=== PATIENT | female | born 1990 | race Caucasian/White ===

== ENCOUNTER 2017-03-08 14:42 | Emergency (ER) | payer SELFPAY ==
[2017-03-08 15:09] VITALS: BP 113/75
[2017-03-08] MEDS ORDERED: ALBUTEROL SULFATE 0.083% NEB 2.5 MG/3 ML AMPUL NEB ONE (15:39)
[2017-03-08] MEDS ORDERED: PREDNISONE 20 MG TABLET PO ONE (15:39)
--- NOTE | 2017-03-08 15:44 | ER Document Report ---
ED Respiratory Problem - General Chief Complaint: Cold Symptoms Stated Complaint: COLD SYMPTOMS Time Seen by Provider: 03/08/17 15:36 Notes: 27 yo female c/o cough, chest tightness, cold s/s x 3 days. symptoms started after doing yard work and burning poison [place] back yard. + smoker, no hx/o asthma TRAVEL OUTSIDE OF THE [place] IN LAST 30 DAYS: No - HPI Patient complains to provider of: Cough Initiating Event: Exposure to smoke Quality of pain: Achy Short of Breath: Mild Cough: Nonproductive Associated symptoms: Chills, Congestion, Cough, Headache, Hurts to breathe, Sore Throat Similar symptoms previously: No Recently seen / treated by doctor: No - Related Data Allergies/Adverse Reactions: No Known Allergies Allergy (Verified 03/08/17 16:21) Home Medications: Current Home Medications Trazodone HCl 200 mg PO QHS 03/08/17 [History] Past Medical History - General Information source: Patient - Social History Smoking Status: Current Every Day Smoker Frequency of alcohol use: Occasional Drug Abuse: None Lives with: Family Family History: Reviewed & Not Pertinent Patient has suicidal ideation: No Patient has homicidal ideation: No - Medical History Medical History: Negative Renal/ Medical History: Denies: Hx Peritoneal Dialysis Review of Systems - Review of Systems Constitutional: No symptoms reported EENT: No symptoms reported, See HPI Cardiovascular: No symptoms reported Respiratory: See HPI Gastrointestinal: No symptoms reported Genitourinary: No symptoms reported Female Genitourinary: No symptoms reported Musculoskeletal: No symptoms reported Skin: No symptoms reported Hematologic/Lymphatic: No symptoms reported Neurological/Psychological: No symptoms reported Physical Exam - Vital signs Vitals: Temp Pulse Resp BP Pulse Ox 99.3 F 79 20 113/75 97 03/08/17 15:07 03/08/17 15:07 03/08/17 15:07 03/08/17 15:07 03/08/17 15:07 Interpretation: Normal - General General appearance: Alert In distress: None - HEENT Head: Normocephalic, Atraumatic Eyes: Normal Conjunctiva: Normal Extraocular movements intact: Yes Pupils: PERRL Tympanic membrane: Normal Mucous membranes: Moist Pharynx: Erythema. No: Retropharyngeal abscess, Tonsillar hypertrophy, Uvular edema, Potential airway comprom. Neck: Normal, Supple - Respiratory Respiratory status: No respiratory distress Chest status: Nontender Breath sounds: Normal Chest palpation: Normal - Cardiovascular Rhythm: Regular Heart sounds: Normal auscultation Murmur: No - Abdominal Inspection: Normal Distension: No distension Bowel sounds: Normal Tenderness: Nontender Organomegaly: No organomegaly - Back Back: Normal, Nontender - Extremities General upper extremity: Normal inspection, Nontender, Normal color, Normal ROM , Normal temperature General lower extremity: Normal inspection, Nontender, Normal color, Normal ROM , Normal temperature, Normal weight bearing. No: Lata's sign - Neurological Neuro grossly intact: Yes Cognition: Normal Orientation: AAOx4 [place] Coma Scale Eye Opening: Spontaneous [place] Coma Scale Verbal: Oriented [place] Coma Scale Motor: Obeys Commands Bladimir Coma Scale Total: 15 Speech: Normal Motor strength normal: LUE, RUE, LLE, RLE Sensory: Normal - Psychological Associated symptoms: Normal affect, Normal mood - Skin Skin Temperature: Warm Skin Moisture: Dry Skin Color: Normal Course - Re-evaluation Re-evalutation: 03/08/17 16:38 pt improved after meds. pt stable for discharge. no signs of infection, PE, pneumothorax or other life threatening condition. pt stable for discharge - Vital Signs Vital signs: Temp Pulse Resp BP Pulse Ox 99.3 F 79 20 113/75 97 03/08/17 15:07 03/08/17 15:07 03/08/17 15:07 03/08/17 15:07 03/08/17 15:07 Discharge - Discharge Clinical Impression: Cough Condition: Stable Disposition: HOME, SELF-CARE Instructions: Inhaled Bronchodilators ([facility]), Steroid Medication, Cough Suppressant & Expectorant Medications Additional Instructions: Take medications as prescribed humidified air push fluids follow up with primary care if symptoms persist return to ER for any worsening Prescriptions: Albuterol Sulfate [Proair HFA Inhalation Aerosol 8.5 gm MDI] 2 puff IH Q4H PRN # 1 mdi PRN Reason: Phenylephrine HCl/Cod/Prometh [Phenergan Vc-Codeine Syrup] 5 - 10 ml PO Q4H # 120 ml Prednisone [Deltasone 20 mg Tablet] 3 tab PO DAILY 3 Days Forms: Return to Work
== END 2017-03-08 17:01 | disposition home or self-care (01) ==
LOC: ER 14:42
DX: R05 Cough (principal); R07.89 Other chest pain; R68.83 Chills (without fever); R51 Headache; J02.9 Acute pharyngitis, unspecified; F17.200 Nicotine dependence, unspecified, uncomplicated
CPT/HCPCS: 99283; J7512

== ENCOUNTER 2018-01-17 08:42 | Day surgery (SDC) | payer OTHER ==
[~2018-01-17 08:42] MED LIST: CEFAZOLIN 1 GM/D5W RTU 1 GM/50 ML RTUPB IV PRN
[2018-01-17] MEDS ORDERED: NORMAL SALINE INJ/PF 0.9% 10 ML SDV ONE (09:38)
[2018-01-17] MEDS ORDERED: BACITRACIN INJ 50,000 UNIT VIAL ONE (09:38)
[2018-01-17] MEDS ORDERED: BUPIVACAINE HCL 0.5 % INJ/PF 30 ML SDV ONE (09:38)
[2018-01-17] MEDS ORDERED: POLYMYXIN B SULFATE INJ 500000 UNIT VIAL ONE (09:38)
[2018-01-17] MEDS ORDERED: LIDOCAINE 2% INJ (20 MG/ML) 20 ML MDV ONE (09:38)
[2018-01-17] MEDS ORDERED: DEXAMETHASONE SOD PHOSPHATE INJ 4 MG/1 ML VIAL ONE (09:40)
[2018-01-17] MEDS ORDERED: PROPOFOL INJ 200 MG/20 ML VIAL IV ONE (09:41)
[2018-01-17] MEDS ORDERED: FENTANYL CITRATE INJ/PF 100 MCG/2 ML AMPUL ONE (09:41)
[2018-01-17] MEDS ORDERED: ACETAMINOPHEN 1,000 MG/100 ML RTUPB IV ONE (09:41)
[2018-01-17] MEDS ORDERED: ONDANSETRON HCL INJ/PF 4 MG/2 ML SDV ONE (09:41)
[2018-01-17] MEDS ORDERED: MIDAZOLAM 2 MG/2 ML INJ ONE (09:41)
[2018-01-17] MEDS: BUPIVACAINE INJ/PF LIPOSOME/PF 266 MG/20 ML SDV ONE ×2 (11:25)
--- NOTE | 2018-01-17 12:50 | SURGICARE OPERATIVE REPORT E ---
[facility] NAME: MOISES HURT AGE: 28Y DATE OF SURGERY: 01/17/2018 ROOM: PREOPERATIVE DIAGNOSIS: Hallux abductovalgus, left foot. POSTOPERATIVE DIAGNOSIS: Hallux abductovalgus, left foot. SURGICAL PROCEDURE: Correction of the bunion, by double osteotomy with internal screw fixation, left foot. SURGEON: ESTLELE AMADOR DPM LEGAL BILLER: SAUL GOSS DPM PROCEDURE: Following induction of general and local anesthesia, the left foot and leg were prepped and draped in the usual sterile manner. A pneumatic tourniquet was placed around the left ankle and inflated to 150 mmHg after exsanguination of the limb via Esmarch bandage. The following surgical procedure was then performed: Correction of bunion, by double osteotomy with internal screw fixation, left foot. Attention was directed to the dorsal aspect of the left foot where an approximately 7 cm dorsal linear incision was made over the first metatarsophalangeal joint. The incision was deep and via sharp dissection. All bleeders were clamped and bovied as necessary for the purposes of hemostasis. A capsular incision was made in the same manner as the original skin incision and was made medial to the extensor hallucis longus tendon. The capsule was then reflected medially and laterally from the bone. The hypertrophied medial eminence of the first metatarsal head was osteotomized parallel to the long axis of the bone utilizing a [employer] sagittal saw. Attention was then directed to the first interspace where utilizing blunt dissection, the transverse adductor tendon was identified, isolated, and then sharply incised. Attention was directed back to the medial aspect of the first metatarsal head where an Ted type osteotomy was performed. The apex was distal. The limbs were at approximately 60 degrees and were plantar and dorsal. The resulting capital fragment was then shifted laterally on the metatarsal approximately 5 mm. The osteotomy was then temporarily fixated with a 0.045 guidewire. An x-ray was then taken to make sure the guidewire was in correct position and it was. A measure reamer was then threaded down the guidewire. A hole was reamed to accept the head of the screw and it was noted that an 18 mm 3.0 cancellous screw would be needed. The distal aspect of the osteotomy was then over drilled utilizing a 2.0 mm drill. The 18 mm 3.0 cancellous screw was then threaded down the guidewire and tightened down on itself until the osteotomy was stably fixated. The guidewire was then removed. Another x-ray was taken and it was noted that the screw was in excellent position and that the osteotomy was stably fixated. Attention was then directed to the proximal phalanx of the hallux where the Shaggy osteotomy was performed. The base was proximal medial and the apex was distal lateral with an approximately 2 mm wedge of bone being removed. This was done by utilizing a [employer] sagittal saw. The osteotomy was then feathered closed utilizing the [employer] sagittal saw until it closed down on itself. The osteotomy was temporarily fixated utilizing a 0.86 guidewire, which was directed from proximal medial to distal lateral. An x-ray was taken and it was noted that the guidewire was in good position. The reamer measure was threaded down the guidewire and it was noted that a 16 mm 2.3 cancellous screw be needed. The osteotomy was then over drilled utilizing a 1.7 mm drill bit. The 16, 2.3 cancellous screw was then threaded down the guidewire and tightened down until the osteotomy was tightened down on itself and stably fixated. The guidewire was then removed. An x-ray was taken and it was noted that the screw was in good position and properly aligned. The medial aspect of the first metatarsal head was rasped smooth utilizing a [employer] crosscut rasp. The area was then flushed with copious amounts of an antibacterial saline solution. Bone wax was then applied to the medial aspect of the first metatarsal head. The capsule was then coapted and maintained utilizing simple interrupted sutures of 3-0 Vicryl. The subcutaneous tissue was coapted and maintained utilizing simple interrupted sutures of 4-0 Vicryl. Total of 17 mL of Exparel was then injected along the length of the incision and the surgical site. The skin was then coapted and maintained utilizing a running subcuticular suture of 5-0 Vicryl. The foot was then cleansed utilizing an alcohol foam. Benzoin was then applied along the length of the incision and Gabriel and Steri-Strips were applied to the incision. A dry sterile dressing was then applied consisting of Amaury silk, 4 x 4s, Conform, Kerlix, and Coban. The pneumatic tourniquet was released. It was noted that all digits were warm and viable, and the patient was transferred to the recovery room. DICTATING PHYSICIAN: ESTELLE AMADOR D.P.M. [id number] PHY#: [id number] ID: [id number] JOB#: [id number] ACCT: [id number] cc:ESTELLE AMADOR DPM > [facility]
--- NOTE | 2018-01-17 13:09 | RADIOLOGY REPORT (SQ) ---
EXAM DESCRIPTION: FOOT LEFT 2 VIEWS; NO CHG FLUORO COMPLETED DATE/TIME: 01/17/2018 12:55 pm REASON FOR STUDY: LEFT FOOT BUNIONECTOMY ASST WITH FLUORO IN OR M20.12 HALLUX VALGUS (ACQUIRED), LE FT FOOT COMPARISON: None. FLUOROSCOPY TIME: 14 seconds 2 digital radiographic images saved to PACS. TECHNIQUE: Intra-operative images acquired during surgical procedure to evaluate progress. NUMBER OF IMAGES: 2 digital radiographic images LIMITATIONS: None. FINDINGS: Intra procedural imaging and fluoro during bunion corrective surgery with osteotomies at t he great toe proximal phalanx and left distal 1st metatarsal metaphysis. Osteotomies are anchored wi th screws in good alignment. Please see the operative report for further information IMPRESSION: Intra procedural imaging and fluoro COMMENT: Quality ID 145: Final reports for procedures using fluoroscopy that document radiation exp osure indices, or exposure time and number of fluorographic images (if radiation exposure indices are not available) Please consult full operative report of the attending physician for description of the procedure. TECHNICAL DOCUMENTATION: JOB ID: [id number] [employer]- All Rights Reserved Reading location - IP/workstation name: [email or web address]
--- NOTE | 2018-01-17 13:09 | RADIOLOGY REPORT (SQ) ---
EXAM DESCRIPTION: FOOT LEFT 2 VIEWS; NO CHG FLUORO COMPLETED DATE/TIME: 01/17/2018 12:55 pm REASON FOR STUDY: LEFT FOOT BUNIONECTOMY ASST WITH FLUORO IN OR M20.12 HALLUX VALGUS (ACQUIRED), LE FT FOOT COMPARISON: None. FLUOROSCOPY TIME: 14 seconds 2 digital radiographic images saved to PACS. TECHNIQUE: Intra-operative images acquired during surgical procedure to evaluate progress. NUMBER OF IMAGES: 2 digital radiographic images LIMITATIONS: None. FINDINGS: Intra procedural imaging and fluoro during bunion corrective surgery with osteotomies at t he great toe proximal phalanx and left distal 1st metatarsal metaphysis. Osteotomies are anchored wi th screws in good alignment. Please see the operative report for further information IMPRESSION: Intra procedural imaging and fluoro COMMENT: Quality ID 145: Final reports for procedures using fluoroscopy that document radiation exp osure indices, or exposure time and number of fluorographic images (if radiation exposure indices are not available) Please consult full operative report of the attending physician for description of the procedure. TECHNICAL DOCUMENTATION: JOB ID: [id number] [employer]- All Rights Reserved Reading location - IP/workstation name: [facility]-RR
--- NOTE | 2018-01-18 10:45 | SURGICARE DISCHARGE SUMMARY E ---
[facility] Discharge Summary NAME: MOISES HURT AGE: 28Y ADMITTED: 01/17/2018 DISCHARGED: 01/17/2018 SURGICAL PROCEDURE: Correction of bunions. She had double osteotomies, internal screw fixation left foot. POSTOPERATIVE DIAGNOSIS: Hallux abducto valgus left foot. SURGEON: Estelle Walter D.P.M. HISTORIC SITES REGISTRAR: David King D.P.M. SUMMARY: The patient was admitted to [facility] with a chief complaint of a painful bunion on her left foot. She stated that this bunion had been present for many years and it hurt whenever she had to walk in shoes. The patient desired to have this problem surgically corrected. She underwent the above surgical procedure without any complications and was transferred to the recovery room. The patient was discharged with a surgical shoe, an ice pack, postoperative instructions including no weightbearing on the surgical foot. She was given a follow up appointment in the doctor's office in 1 week and she was discharged from [facility]. DICTATING PHYSICIAN: ESTELLE WALTER D.P.M. [id number] PHY#: [id number] ID: [id number] JOB#: [id number] ACCT: [id number] cc:ESTELLE WALTER DPM >
== END 2018-01-17 12:45 | disposition home or self-care (01) ==
LOC: SC 08:42
PROVIDERS: ATTEND Podiatrist Foot Surgery
DX: M20.12 Hallux valgus (acquired), left foot (principal); F17.210 Nicotine dependence, cigarettes, uncomplicated; M19.90 Unspecified osteoarthritis, unspecified site; G47.30 Sleep apnea, unspecified; F32.9 Major depressive disorder, single episode, unspecified; F41.9 Anxiety disorder, unspecified; Z79.899 Other long term (current) drug therapy; Z79.1 Long term (current) use of non-steroidal anti-inflammatories (NSAID)
CPT/HCPCS: 28299; 73620; C1713 ×2; C1769 ×2; J2250; J3490 ×5; J0690; J1100; J3010; J2405; J2704; J0131; C9290; 01480

== ENCOUNTER 2018-08-29 07:32 | Day surgery (SDC) | payer OTHER ==
[~2018-08-29 07:32] MED LIST changes: +BUPIVACAINE HCL 0.5 % INJ/PF 30 ML SDV ONE; +LIDOCAINE 1% INJ-PF (10 MG/ML) 30 ML SDV ONE; +MIDAZOLAM 2 MG/2 ML INJ ONE; +PROPOFOL INJ 200 MG/20 ML VIAL IV ONE
[2018-08-29] MEDS ORDERED: FENTANYL CITRATE INJ/PF 100 MCG/2 ML AMPUL ONE (08:31)
[2018-08-29] MEDS ORDERED: ONDANSETRON HCL INJ/PF 4 MG/2 ML SDV ONE (08:54)
[2018-08-29] MEDS ORDERED: ACETAMINOPHEN 1,000 MG/100 ML RTUPB IV ONE (08:54)
[2018-08-29] MEDS ORDERED: DEXAMETHASONE SOD PHOS INJ 10 MG/1 ML VIAL ONE (08:54)
[2018-08-29] MEDS: NORMAL SALINE INJ/PF 0.9% 10 ML SDV ONE ×2 (10:15)
[2018-08-29] MEDS: POLYMYXIN B SULFATE INJ 500000 UNIT VIAL ONE ×2 (10:15)
[2018-08-29] MEDS: BACITRACIN INJ 50,000 UNIT VIAL ONE ×2 (10:15)
[2018-08-29] MEDS: BUPIVACAINE INJ/PF LIPOSOME/PF 266 MG/20 ML SDV ONE ×2 (10:27)
--- NOTE | 2018-08-29 11:42 | SURGICARE OPERATIVE REPORT E ---
[facility] Operative Report NAME: MOISES HURT AGE: 28Y DATE OF SURGERY: 08/29/2018 ROOM: PREOPERATIVE DIAGNOSIS: HALLUX ABDUCTOVALGUS RIGHT FOOT. POSTOPERATIVE DIAGNOSIS: HALLUX ABDUCTOVALGUS RIGHT FOOT. OPERATION: Correction of bunion by double osteotomy with internal screw fixation, right foot. SURGEON: ESTELLE AMADOR DPM REACTOR KETTLE OPERATOR: SAUL GOSS DPM PROCEDURE: Following induction of general anesthesia, the right foot was locally anesthetized then the right foot and leg were prepped and draped in the usual sterile manner. A tourniquet was applied to the right ankle and inflated to 250 mmHg after exsanguination of the limb via Esmarch bandage. The following surgical procedure was then performed: Correction of bunion by double osteotomies with internal fixation, right foot. Attention was directed to the first metatarsophalangeal joint of the right foot where an approximately 6 cm dorsal linear incision was made. The incision was deep and via sharp dissection all bleeders were clamped and bovied as necessary for the purposes of hemostasis. A capsular incision was made in the same manner as the original skin incision. The capsule was reflected medially and laterally from the bone. This was brought in to view the hypertrophied medial eminence of the first metatarsal head. Utilizing a [employer] sagittal saw, the medial eminence was osteotomized parallel to the long axis of the bone and removed en toto from the wound. Attention was then directed to the first interspace where utilizing tenotomy scissors, the transverse adductor tendon was identified, isolated, and sharply incised. Attention was directed back to the medial aspect of the first metatarsal head, where utilizing a [employer] sagittal saw an Ted type osteotomy was performed with the apex being distal and the wings going out approximately 60 degrees plantar and dorsal. The kinzmma-xim-lgyyxcn osteotomy, the metatarsal head was then shift laterally approximately 5 mL and impacted on the bone. This osteotomy was temporarily fixated using a 0.045 K-wire guidewire. An x-ray was taken and it was noted that the first metatarsophalangeal joint was now more correct in an anatomically correct position and that the wire was in good position. The reamer measured was threaded down the guidewire and it was noted that a 22 mm x 3.0 cannulated screw would be needed. The osteotomy was then over drilled utilizing a 2.0 mm drill. The osteotomy was then fixated utilizing a 22 mm x 3.0 cannulated screw. The guidewire was removed. Another x-ray was taken. It was noted that the screw was in good position and that the first metatarsophalangeal joint was more round and more anatomically correct to position. The redundant bone on the medial aspect of the first metatarsal head was then osteotomized parallel to the long axis of the bone utilizing a [employer] sagittal saw. Attention was then directed to the base of the proximal phalanx where a Shaggy osteotomy was performed. This was done approximately 1 cm distal to the joint. The apex was lateral and an approximately 2 mm wedge of bone was removed. The osteotomy was set down on itself utilizing a [employer] sagittal saw until it closed down. Osteotomy was temporarily fixated utilizing a 0.086 guidewire. An x-ray was taken. It was noted that the wire was in good position and the osteotomy was closed down on itself. The measure reamer was threaded down the guidewire and it was noted than an 18 mm x 2.3 cannulated screw would be needed. The osteotomy was then over drilled utilizing a 1.7 drill bit. The 18 mm x 2.3 cannulated screw was threaded down the guidewire and tightened down until the osteotomy was stably fixated. The guidewire was removed. An x-ray was taken. It was noted that the screw was in excellent position and that the first metatarsophalangeal joint was not in a more anatomically correct position. The medial aspect of the first metatarsal head was then rasped smooth utilizing a [employer] cross-cut rasp. The area was then flushed with copious amounts of antibacterial saline solution. Bone wax was applied to the medial aspect of the first metatarsal head. The capsule was then coapted and maintained utilizing simple interrupted sutures of 3-0 Vicryl. The subcutaneous tissue was coapted and maintained utilizing simple interrupted sutures of 4-0 Vicryl. Twenty mL of [employer] was then injected subcutaneously along the incision and the surgical site. The skin was then coapted and maintained utilizing a running subcuticular suture of 5-0 Vicryl. The foot with then cleansed with alcohol foam. Benzoin was applied along the length of the incision and 1/8 inch Steri-Strips were then applied to the incision. Dry sterile dressing was then applied consisting of Amaury silk, 4 x 4s, Conform, Kerlix, and Coban. The pneumatic tourniquet was released. It was noted that all digits were warm and viable and patient was transferred to the recovery room. DICTATING PHYSICIAN: ESTELLE AMADOR D.P.M. [id number] PHY#: [id number] ID: [id number] JOB#: [id number] ACCT: [id number] cc:ESTELLE AMADOR DPM > [facility]
--- NOTE | 2018-08-29 11:47 | SURGICARE DISCHARGE SUMMARY E ---
[facility] Discharge Summary NAME: MOISES HURT AGE: 28Y ADMITTED: 08/29/2018 DISCHARGED: 08/29/2018 SURGICAL PROCEDURE: Correction of bunion by double osteotomy with internal fixation, right foot. POSTOPERATIVE DIAGNOSIS: Hallux abductovalgus, right foot. SURGEON: Estelle Walter DPM FORENSIC PSYCHOLOGIST: David King DPM HOSPITAL COURSE: The patient was admitted to [facility] with chief complaint of a painful bunion on her right foot. She was in pain whenever she had to wear shoes and she had this bunion for a number of years. She had a bunionectomy performed on her left foot last spring and now she would like to have her right foot corrected. She underwent the above surgical procedure without any complications and was transferred to the recovery room. The patient was discharged with a surgical shoe, an ice pack, postoperative instructions. She had been given her postoperative prescriptions prior to surgery. The patient was discharged from the [facility]. She was given a follow-up appointment at doctor's office in 1 week. DICTATING PHYSICIAN: ESTELLE WALTER D.P.M. [id number] PHY#: [id number] ID: [id number] JOB#: [id number] ACCT: [id number] cc:ESTELLE WALTER DPM > [facility]
--- NOTE | 2018-08-29 13:29 | RADIOLOGY REPORT (SQ) ---
EXAM DESCRIPTION: NO CHG FLUORO; FOOT RIGHT 2 VIEWS COMPLETED DATE/TIME: 08/29/2018 1:09 pm REASON FOR STUDY: RIGHT FOOT BUNIONECTOMY AND DOUBLE OSTEOTOMY M20.11 HALLUX VALGUS (ACQUIRED), RIG HT FOOT COMPARISON: None. FLUOROSCOPY TIME: 16 seconds. 3 images saved to PACS. TECHNIQUE: Intra-operative images acquired during surgical procedure to evaluate progress. NUMBER OF IMAGES: 3 images. LIMITATIONS: None. FINDINGS: Images of the 1st toe acquired during bunionectomy and osteotomy. IMPRESSION: IMAGE(S) OBTAINED DURING PROCEDURE. COMMENT: Quality ID 145: Final reports for procedures using fluoroscopy that document radiation exp osure indices, or exposure time and number of fluorographic images (if radiation exposure indices are not available) Please consult full operative report of the attending physician for description of the procedure. TECHNICAL DOCUMENTATION: JOB ID: [id number] [employer] All Rights Reserved Reading location - IP/workstation name: [email or web address]
--- NOTE | 2018-08-29 13:29 | RADIOLOGY REPORT (SQ) ---
EXAM DESCRIPTION: NO CHG FLUORO; FOOT RIGHT 2 VIEWS COMPLETED DATE/TIME: 08/29/2018 1:09 pm REASON FOR STUDY: RIGHT FOOT BUNIONECTOMY AND DOUBLE OSTEOTOMY M20.11 HALLUX VALGUS (ACQUIRED), RIG HT FOOT COMPARISON: None. FLUOROSCOPY TIME: 16 seconds. 3 images saved to PACS. TECHNIQUE: Intra-operative images acquired during surgical procedure to evaluate progress. NUMBER OF IMAGES: 3 images. LIMITATIONS: None. FINDINGS: Images of the 1st toe acquired during bunionectomy and osteotomy. IMPRESSION: IMAGE(S) OBTAINED DURING PROCEDURE. COMMENT: Quality ID 145: Final reports for procedures using fluoroscopy that document radiation exp osure indices, or exposure time and number of fluorographic images (if radiation exposure indices are not available) Please consult full operative report of the attending physician for description of the procedure. TECHNICAL DOCUMENTATION: JOB ID: [id number] [employer]- All Rights Reserved Reading location - IP/workstation name: [email or web address]
== END 2018-08-29 11:56 | disposition home or self-care (01) ==
LOC: SC 07:32
PROVIDERS: ATTEND Podiatrist Foot Surgery
DX: M20.11 Hallux valgus (acquired), right foot (principal); G47.30 Sleep apnea, unspecified; K21.9 Gastro-esophageal reflux disease without esophagitis; F17.210 Nicotine dependence, cigarettes, uncomplicated; Z79.899 Other long term (current) drug therapy
CPT/HCPCS: 73620; 28299; C1713 ×2; C1769 ×2; J2250; J3490 ×5; J0690; J3010; J2405; J2704; J1100; J0131; C9290; 01480

== ENCOUNTER 2018-12-09 03:12 | Emergency (ER) | payer OTHER ==
--- NOTE | 2018-12-09 03:34 | ER Document Report ---
ED General - General Chief Complaint: Syncope Stated Complaint: SYNCOPAL EPISODE WITH FALL/HEAD INJURY Time Seen by Provider: 12/09/18 03:33 Primary Care Provider: KELL GOSS PA-C [NO LOCAL MD] - Follow up as needed Notes: Patient is a 28-year-old female presents with complaint of passing out episode. She does admit to drinking alcohol today. She does not remember a lot of the episode. She says she did hit the back of her head and has some pain over the right posterior aspect of her head. She does have a history of anxiety depression for which she takes medications. She is over last 2 months her doctors told her that she has rhabdomyolysis and that she may eventually have to be admitted for IV hydration if it continues. She has no other complaints at this time. She is otherwise healthy. She denies any other injuries such as to her neck back or extremities. TRAVEL OUTSIDE OF THE [place] IN LAST 30 DAYS: No - Related Data Allergies/Adverse Reactions: No Known Allergies Allergy (Verified 01/17/18 09:19) Past Medical History - Social History Smoking Status: Unknown if Ever Smoked Frequency of alcohol use: Occasional Drug Abuse: None Family History: Reviewed & Not Pertinent - Past Medical History Cardiac Medical History: Denies: Hx Heart Attack, Hx Hypertension Pulmonary Medical History: Denies: Hx Asthma Neurological Medical History: Denies: Hx Cerebrovascular Accident, Hx Seizures Renal/ Medical History: Denies: Hx Peritoneal Dialysis GI Medical History: Denies: Hx Hepatitis, Hx Hiatal Hernia, Hx Ulcer Infectious Medical History: Denies: Hx Hepatitis Past Surgical History: Denies: Hx Mastectomy, Hx Open Heart Surgery, Hx Pacemaker - Immunizations Hx Diphtheria, Pertussis, Tetanus Vaccination: - unknown Review of Systems - Review of Systems Notes: My Normal Review Basic REVIEW OF SYSTEMS: CONSTITUTIONAL : Denies fever, chills, or sweats. Denies recent illness. EENT: Denies eye, ear, throat, or mouth pain or symptoms. Denies nasal or sinus congestion. RESPIRATORY: Denies cough, cold, or chest congestion. Denies shortness of breath, difficulty breathing, or wheezing. GASTROINTESTINAL: Denies abdominal pain. Denies nausea, vomiting, or diarrhea. Denies constipation. Last BM: GENITOURINARY: Denies difficulty urinating, painful urination, burning, fr equency, or blood in urine. FEMALE GENITOURINARY: Denies vaginal bleeding, abnormal or irregular periods. LMP: MUSCULOSKELETAL: Denies neck or back pain or joint pain or swelling. SKIN: Denies rash or skin lesions. NEUROLOGICAL: Had syncopal episode. Pain over right occipital region.. Denies weakness or paralysis or loss of use of either side. Denies problems with gait or speech. Denies sensory or motor loss. PSYCHIATRIC: History of anxiety and depression. ALL OTHER SYSTEMS REVIEWED AND NEGATIVE. Physical Exam - Notes Notes: General Appearance: Well nourished, alert, cooperative, no acute distress, no obvious discomfort. Well-appearing. Vitals: reviewed, See vital signs table. Head: Small hematoma over right occipital region. Eyes: PERRL, EOMI, Conjuctiva clear Mouth: No decreasd moisture Neck: Supple, no neck soreness to palpation which patient says is chronic. No neck tenderness. No step-offs or deformities. Lungs: No wheezing, No rales, No rhonci, No accessory muscle use, good air exchange bilaterally. Heart: Normal rate, Regular rythm, No murmur, no rub Chest Wall: Some mild reproducible pain palpation of anterior chest wall. Abdomen: Normal BS, soft, No rigidity, No abdominal tenderness, No guarding, no rebound, no abdominal masses, no organomegaly Extremities: strength 5/5 in all extremities, good pulses in all extremities, no swelling or tenderness in the extremities, no edema. Skin: warm, dry, appropriate color, no rash Neuro: speech clear, oriented x 3, normal affect, responds appropriately to questions. Course - Re-evaluation Re-evalutation: 12/09/18 04:11 Patient informed the nurse that she does not want IV fluids and that she does not want to stay. Says she does not want a CT scan. I did go and speak with he r and patient says that she does have a mild headache and would like to leave now. She is understanding that I cannot rule out brain bleed or potential serious injury to her head without CT scan. I informed her also that her labs are not back and therefore prefer she stay until her labs come back and also to receive IV fluids. I informed her that without IV fluid she may continue be dizzy when she stands up and could potentially pass out her herself again. Patient says she understands this but still wants to leave. I did take down her phone numbers to call her with her laboratory results being that her blood is Inocencio been drawn. I informed her to come back anytime as we are happy to take care of her and treat her to make sure that she is doing well. Patient currently is clinically sober. She answers all questions properly. She has no slurring of her words. She is responding to everything appropriately. I do not feel I can hold her against her will at this time. Dictation of this chart was performed using voice recognition software; therefore, there may be some unintended grammatical errors. - Laboratory Result Diagrams: 12/09/18 03:30 12/09/18 03:30 - EKG Interpretation by Me Additional EKG results interpreted by me: 12/09/18 03:34 EKG is reviewed and interpreted by me. EKG shows sinus rhythm with a rate of [address] segment elevation or depression. No ischemic T wave inversions. MA interval, QRS duration, QTc intervals are within normal range. Old EKG for comparison is not available at this time. Discharge - Discharge Clinical Impression: Syncope Qualifiers: Syncope type: unspecified Qualified Code(s): R55 - Syncope and collapse Condition: Good Disposition: HOME, SELF-CARE Additional Instructions: As discussed with you, I cannot rule out the potential of a bleed on your brain or a skull fracture without doing a CT scan. I will call you to that you know if your lab results are normal. Please drink non-caffeinated liquids over the next 24 hours. Please rest. Do not stand up too quickly or you may pass out and fall and hurt herself. Do recommend that you stay and receive IV fluids. There is no way to determine whether or not you will have a bad outcome within the next 24 hours without testing and this is why we prefer you to stay. We respect your decision to leave and understand that you do have prior priorities. Even though you are leaving we are not upset or mad. We just want what is best for you and therefore we encourage you to come back anytime if you have any recurrence of your symptoms. Referrals: KELL GOSS PA-C [NO LOCAL MD] - Follow up tomorrow
[2018-12-09] MEDS ORDERED: NORMAL SALINE 1000 ML 1,000 ML IV ONE (03:39)
[2018-12-09] MEDS ORDERED: DEXTROSE 5%-NORMAL SALINE 1,000 ML IV ONE (03:40)
[2018-12-09 04:08] LABS: ABSOLUTE EOSINOPHILS # (AUTO) 0.2 10^3/uL (0.0-0.6); ABSOLUTE LYMPHOCYTES (AUTO) 2.9 10^3/uL (0.5-4.7); ABSOLUTE MONOCYTES (AUTO) 0.5 10^3/uL (0.1-1.4); BASOPHILS % (AUTO) 0.5 % (0-2); EOSINOPHILS % (AUTO) 2.1 % (0-6); HEMATOCRIT 38.7 % (36.0-47.0); HEMOGLOBIN 13.2 g/dL (12.0-15.5); LYMPHOCYTES % (AUTO) 33.9 % (13-45); MEAN CORPUSCULAR HEMOGLOBIN 32.1 pg (27.0-33.4); MEAN CORPUSCULAR HGB CONC 34.1 g/dL (32.0-36.0); MEAN CORPUSCULAR VOLUME 94 fl (80-97); MONOCYTES % (AUTO) 5.7 % (3-13); PLATELET COUNT 181 10^3/uL (150-450); RED BLOOD COUNT 4.11 10^6/uL (3.72-5.28); RED CELL DISTRIBUTION WIDTH 12.9 % (11.5-14.0); SEGMENTED NEUTROPHILS % (AUTO) 57.8 % (42-78); TOTAL CELLS COUNTED % (AUTO) 100 %; WHITE BLOOD COUNT 8.6 10^3/uL (4.0-10.5)
[2018-12-09 04:27] LABS: ALANINE AMINOTRANSFERASE 26 U/L (9-52); ALBUMIN 4.4 g/dL (3.5-5.0); ALKALINE PHOSPHATASE 66 U/L (38-126); ANION GAP 13 (5-19); ASPARTATE AMINO TRANSFERASE 26 U/L (14-36); BILIRUBIN,DIRECT 0.2 mg/dL (0.0-0.4); BILIRUBIN,TOTAL 0.3 mg/dL (0.2-1.3); BLOOD UREA NITROGEN 7 mg/dL (7-20); CALCIUM 8.8 mg/dL (8.4-10.2); CARBON DIOXIDE 26 mmol/L (22-30); CHLORIDE 109 mmol/L (98-107); CREATINE KINASE 89 U/L (30-135); GLUCOSE 78 mg/dL (75-110); POTASSIUM 3.9 mmol/L (3.6-5.0); SODIUM 147.8 mmol/L (137-145); TOTAL PROTEIN 7.5 g/dL (6.3-8.2)
[2018-12-09 04:37] VITALS: BP 106/72
--- NOTE | 2018-12-09 23:08 | EKG REPORT ---
SEVERITY:- ABNORMAL ECG - SINUS RHYTHM LEFT ATRIAL ABNORMALITY INCOMPLETE RIGHT BUNDLE BRANCH BLOCK : Confirmed by: Scarlet Zheng 09-Dec-2018 23:07:36
== END 2018-12-09 04:20 | disposition home or self-care (01) ==
LOC: ER 03:12
DX: R55 Syncope and collapse (principal); S09.90XA Unspecified injury of head, initial encounter; X58.XXXA Exposure to other specified factors, initial encounter; Z79.899 Other long term (current) drug therapy
CPT/HCPCS: 36415; 80053; 82550; 82962; 84703; 85025; 93005; 93010; 99284